=== PATIENT | female | born 1985 | race African-American/Black ===

== ENCOUNTER 2020-03-12 22:58 | Emergency (ER) | payer OTHER ==
[2020-03-12 23:38] LABS: Basophils % (Auto) 0.2 % (0.0-1.8); Eosinophils # (Auto) 0.1 K/mm3 (0.0-0.4); Eosinophils % (Auto) 1.3 % (0.0-4.3); Hematocrit 37.9 % (30.3-42.9); Hemoglobin 13.3 gm/dl (10.1-14.3); Lymphocytes # (Auto) 3.8 K/mm3 (1.2-5.4); Lymphocytes % (Auto) 36.3 % (13.4-35.0); Mean Corpuscular HGB Conc 35 % (30-34); Mean Corpuscular Volume 85 fl (79-97); Monocytes # (Auto) 0.7 K/mm3 (0.0-0.8); Monocytes % (Auto) 6.8 % (0.0-7.3); Platelet Count 348 K/mm3 (140-440); Red Blood Count 4.47 M/mm3 (3.65-5.03); Red Cell Distribution Width 13.6 % (13.2-15.2)
[2020-03-12 23:53] LABS: Alanine Aminotransferase 21 units/L (7-56); Albumin 4.7 g/dL (3.9-5); Blood Urea Nitrogen 11 mg/dL (7-17); Calcium 9.4 mg/dL (8.4-10.2); Hemolysis Index 4
[2020-03-13 00:03] LABS: Bacteria,Urine 2+ /HPF (Negative); Bilirubin,Urine NEG (Negative); Blood,Urine NEG (Negative); Color,Urine Yellow (Yellow); Mucus,Urine FEW /HPF; Urobilinogen,Urine < 2.0 mg/dL (<2.0)
[2020-03-13 00:18] LABS: BUN/Creatinine Ratio 22
[2020-03-13] MEDS ORDERED: DICYCLOMINE 20 MG TAB PO ONE (04:18)
[2020-03-13] MEDS ORDERED: KETOROLAC 30 MG/1 ML INJ IV ONE (04:18)
[2020-03-13] MEDS ORDERED: FAMOTIDINE 20 MG/2 ML INJ IV ONE (04:18)
[2020-03-13] MEDS ORDERED: ONDANSETRON 4 MG/2 ML INJ IV ONE (04:18)
--- NOTE | 2020-03-13 06:48 | Emergency Department Report ---
ED Abdominal Pain HPI - General Chief Complaint: Abdominal Pain Stated Complaint: ABD PAIN/HEADACHE/DIZZINESS Source: patient, family Mode of arrival: Ambulatory Limitations: Language Barrier - History of Present Illness Initial Comments: Patient is a 35-year-old [place] female with no past medical history presents to the ED with complaint of acute onset persistent intermittent diffuse abdominal pain with intermittent nausea and vomiting for the last 1 month, worse in the last 1 week. Patient states that in the last 2 days the pain and the nausea have been persistent such that she has not had any appetite in the last 2 days because of persistent nausea and diffuse abdominal pain. Patient denies vaginal bleeding, vaginal discharge, dysuria, urinary frequency and urgency, dyspareunia, low back pain, chest pain, shortness of breath, cough, fever, chills, diarrhea, dizziness, headache or hematemesis. MD Complaint: abdominal pain, other (Nausea and vomiting) -: Gradual, month(s) (1) Location: diffuse Radiation: none Migration to: no migration Severity scale (0 -10): 5 Quality: cramping, aching Consistency: intermittent Improves With: nothing Worsens With: vomiting Associated Symptoms: denies other symptoms, nausea, vomiting. denies: diarrhea, fever, chills, constipation, dysuria, melena, anorexia - Related Data LMP Date: 03/06/20 Previous Rx's Medication Instructions Recorded Last Taken Type Dicyclomine [Bentyl] 20 mg PO Q6H PRN #30 tablet 03/13/20 Unknown Rx Famotidine [Pepcid] 20 mg PO BID #60 tablet 03/13/20 Unknown Rx Naproxen [Naprosyn TAB] 375 mg PO Q12H PRN #24 tablet 03/13/20 Unknown Rx Ondansetron [Zofran Odt] 4 mg PO Q6HR PRN #15 tab.rapdis 03/13/20 Unknown Rx Allergies Allergy/AdvReac Type Severity Reaction Status Date / Time No Known Allergies Allergy Unverified 11/19/15 18:47 ED Review of Systems ROS: Stated complaint: ABD PAIN/HEADACHE/DIZZINESS Other details as noted in HPI Constitutional: denies: chills, fever Eyes: denies: eye pain, eye discharge, vision change ENT: denies: ear pain, throat pain Respiratory: denies: cough, shortness of breath, wheezing Cardiovascular: denies: chest pain, palpitations Endocrine: no symptoms reported Gastrointestinal: abdominal pain, nausea, vomiting. denies: diarrhea Genitourinary: denies: urgency, dysuria, discharge Musculoskeletal: denies: back pain, joint swelling, arthralgia Skin: denies: rash, lesions Neurological: denies: headache, weakness, paresthesias Psychiatric: denies: anxiety, depression Hematological/Lymphatic: denies: easy bleeding, easy bruising ED Past Medical Hx - Past Medical History Previous Medical History?: No - Surgical History Additional Surgical History: Hysterectomy - Social History Smoking Status: Never Smoker Substance Use Type: None - Medications Home Medications: Home Medications Medication Instructions Recorded Confirmed Last Taken Type Dicyclomine [Bentyl] 20 mg PO Q6H PRN #30 tablet 03/13/20 Unknown Rx Famotidine [Pepcid] 20 mg PO BID #60 tablet 03/13/20 Unknown Rx Naproxen [Naprosyn TAB] 375 mg PO Q12H PRN #24 tablet 03/13/20 Unknown Rx Ondansetron [Zofran Odt] 4 mg PO Q6HR PRN #15 tab.rapdis 03/13/20 Unknown Rx ED Physical Exam - General Limitations: Language Barrier General appearance: alert, in no apparent distress - Head Head exam: Present: atraumatic, normocephalic, normal inspection - Eye Eye exam: Present: normal appearance, PERRL, EOMI Pupils: Present: normal accommodation - ENT ENT exam: Present: normal exam, normal orophraynx, mucous membranes moist, TM's normal bilaterally, normal external ear exam - Neck Neck exam: Present: normal inspection, full ROM - Respiratory Respiratory exam: Present: normal lung sounds bilaterally. Absent: respiratory distress, wheezes, rales, rhonchi, chest wall tenderness, accessory muscle use, decreased breath sounds - Cardiovascular Cardiovascular Exam: Present: regular rate, normal rhythm, normal heart sounds. Absent: systolic murmur, diastolic murmur, rubs, gallop - GI/Abdominal GI/Abdominal exam: Present: soft, tenderness (Palpable mildly diffuse abdominal tenderness), normal bowel sounds. Absent: guarding, rebound, hyperactive bowel sounds, hypoactive bowel sounds - Bi-manual exam: Present: other (Pelvic exam deferred) - Extremities Exam Extremities exam: Present: normal inspection, full ROM, normal capillary refill - Back Exam Back exam: Present: normal inspection, full ROM. Absent: tenderness, CVA tenderness (R), CVA tenderness (L), muscle spasm, paraspinal tenderness - Neurological Exam Neurological exam: Present: alert, oriented X3, CN II-XII intact, normal gait, reflexes normal - Psychiatric Psychiatric exam: Present: normal affect, normal mood - Skin Skin exam: Present: warm, dry, intact, normal color. Absent: rash ED Course Vital Signs 03/12/20 23:02 Temperature 98.2 F Pulse Rate 83 Respiratory 18 Rate Blood Pressure 119/76 O2 Sat by Pulse 96 Oximetry ED Medical Decision Making - Lab Data Result diagrams: 03/12/20 23:01 03/12/20 23:01 - Radiology Data Radiology results: report reviewed, image reviewed Findings [facility] [address] [place] [address] Cat Scan Report Signed Patient: LORNA DUMONT MR#: [id number] : 1985 Acct:[id number] Age/Sex: 35 / F ADM Date: 03/12/20 Loc: ED Attending Dr: Ordering Physician: ZURI VALDERRAMA Date of Service: 03/13/20 Procedure(s): CT abdomen pelvis w con Accession Number(s): [id number] cc: ZURI VALDERRAMA CT abdomen pelvis w con INDICATION: abdominal pain. TECHNIQUE: All CT scans at this location are performed using CT dose reduction for ALARA by means of automated exposure control. COMPARISON: None available. FINDINGS: Lung bases are clear. Liver, gallbladder, spleen, pancreas, kidneys and adrenals are negative. Abdominal aorta is normal in size. No adenopathy. Pelvis Normal appendix. Urinary bladder and distal ureters are negative. No free fluid or inflammation. Mild sigmoid diverticulosis but no evidence of diverticulitis. No appreciable small bowel abn ormalities. No significant skeletal lesions. IMPRESSION: 1. No acute abnormality. Signer Name: Ronen Flores MD Signed: 03/13/2020 7:06 AM Workstation Name: [id number] Transcribed By: TM Dictated By: Ronen Flores MD Electronically Authenticated By: Ronen Flores MD Signed Date/Time: 03/13/20705 DD/ 2 TD/TT: - Medical Decision Making This is a 35-year-old [place] female with no past medical history presents to the ED with complaint of acute onset persistent intermittent diffuse abdominal pain with intermittent nausea and vomiting for the last 1 month, worse in the last 1 week. Patient states that in the last 2 days the pain and the nausea have been persistent such that she has not had any appetite in the last 2 days because of persistent nausea and diffuse abdominal pain. In the ED, patient is alert and oriented x3 and is not in distress. Lab test results were reviewed and are all nonactionable including urinalysis. Patient was treated for nausea and vomiting and also treated for pain in the ED. The abdomen pelvis CT scan with contrast showed no acute abnormalities. On reevaluation, patient's pain is well controlled medication. Patient was discharged home on medications and advised to follow-up with her primary care physician in 5 to 7 days for reevaluation or return to the ED immediately if symptoms get worse. - Differential Diagnosis GERD; gastroenteritis; UTI; cholelithiasis; appendicitis; ovarian cyst Critical care attestation.: If time is entered above; I have spent that time in minutes in the direct care of this critically ill patient, excluding procedure time. ED Disposition Clinical Impression: Nausea and vomiting in adult Abdominal pain Qualifiers: Abdominal location: generalized Qualified Code(s): R10.84 - Generalized abdominal pain Disposition: TO HOME OR SELFCARE Is pt being admited?: No Does the pt Need Aspirin: No Condition: Stable Instructions: Acute Nausea and Vomiting (ED), Abdominal Pain (ED) Additional Instructions: Lab test results are unremarkable with no acute abnormalities. Therefore take medications with food, drink plenty of fluids and follow-up with your primary care physician in 5 to 7 days for reevaluation. Return to the ED immediately if symptoms get worse. Prescriptions: Dicyclomine [Bentyl] 20 mg PO Q6H PRN #30 tablet PRN Reason: Abdominal pain Naproxen [Naprosyn TAB] 375 mg PO Q12H PRN #24 tablet PRN Reason: Pain , Severe (7-10) Famotidine [Pepcid] 20 mg PO BID #60 tablet Ondansetron [Zofran Odt] 4 mg PO Q6HR PRN #15 tab.rapdis PRN Reason: Nausea Referrals: [facility] [Provider Group] - 3-5 Days Time of Disposition: 06:45 Print Language: GUYANESE
--- NOTE | 2020-03-13 07:11 | Cat Scan Report ---
CT abdomen pelvis w con INDICATION: abdominal pain. TECHNIQUE: All CT scans at this location are performed using CT dose reduction for ALARA by means of automated e xposure control. COMPARISON: None available. FINDINGS: Lung bases are clear. Liver, gallbladder, spleen, pancreas, kidneys and adrenals are negative. Abdomi nal aorta is normal in size. No adenopathy. Pelvis Normal appendix. Urinary bladder and distal ureters are negative. No free fluid or inflammation. Mild sigmoid diverticulosis but no evidence of diverticulitis. No appreciable small bowel abnormalities. No significant skeletal lesions. IMPRESSION: 1. No acute abnormality. Signer Name: Ronen Flores MD Signed: 03/13/2020 7:06 AM Workstation Name: [id number]
[2020-03-13 08:25] VITALS: BP 118/66
== END 2020-03-13 07:30 | disposition home or self-care (01) ==
LOC: ED 22:58
DX: R10.84 Generalized abdominal pain (principal); R11.2 Nausea with vomiting, unspecified; Z90.710 Acquired absence of both cervix and uterus; Z79.899 Other long term (current) drug therapy
CPT/HCPCS: 36415; 74177; 80053; 81001; 84703; 85025; 96374; 96375; 99284; J1885; J2405; Q9967